=== PATIENT | male | born 1945 | race Caucasian/White ===

== ENCOUNTER 2018-01-07 07:25 | Day surgery (SDC) | payer OTHER ==
[2018-01-07] MEDS ORDERED: SIMETHICONE 40 MG/0.6 ML ML ONE (08:20)
[2018-01-07] MEDS ORDERED: MIDAZOLAM HCL 5 MG/5 ML VIAL ONE (08:21)
[2018-01-07] MEDS: MEPERIDINE HCL/PF 100 MG/ML AMP ONE ×3 (09:50→10:00)
[2018-01-07] MEDS: MIDAZOLAM HCL 5 MG/5 ML VIAL ONE ×3 (09:50→10:02)
[2018-01-07 12:24] VITALS: BP_SYST 122
== END 2018-01-07 11:25 | disposition home or self-care (01) ==
LOC: SMU 07:25 → SDS 07:25
PROVIDERS: ATTEND Internal Medicine Gastroenterology
DX: K64.8 Other hemorrhoids (principal); E80.6 Other disorders of bilirubin metabolism; I25.10 Atherosclerotic heart disease of native coronary artery without angina pectoris; I21.3 ST elevation (STEMI) myocardial infarction of unspecified site; Z98.890 Other specified postprocedural states; E11.9 Type 2 diabetes mellitus without complications; E78.5 Hyperlipidemia, unspecified; E66.9 Obesity, unspecified; I10 Essential (primary) hypertension; Z68.39 Body mass index [BMI] 39.0-39.9, adult
CPT/HCPCS: 45380; 82962; 88305; J2175; J2250